=== PATIENT | female | born 1980 | race Asian ===

== ENCOUNTER 2021-09-01 14:16 | Emergency (ER) | payer OTHER ==
[~2021-09-01] VITALS: Ht 162.6 cm; Wt 58.1 kg
[2021-09-01 14:22] VITALS: BP_SYST 124
--- NOTE | 2021-09-01 14:26 | NUR ---
Patient to ER bed 05 to gown for evaluation. Side rails up.
--- NOTE | 2021-09-01 16:45 | NUR ---
pt. bib with c/o worsening upper back and shoulder pain, states has had pain for a year but it has worsened this past month, describes it as tightening and thinks might be caused from stress, rates pain 11/15
--- NOTE | 2021-09-01 16:50 | NUR ---
ANN Smith at bedside examining patient.
--- NOTE | 2021-09-01 16:56 | NUR ---
Patient ambulated to radiology via , accompanied by staff.
--- NOTE | 2021-09-01 17:54 | NUR ---
pts. pain 6/10 denies need for pain medication
[2021-09-01 17:55] VITALS: BP_SYST 94
--- NOTE | 2021-09-01 17:56 | NUR ---
Patient given written and verbal discharge instructions and verbalizes understanding. ER Dr. Howell discussed with patient the results and treatment provided. Patient in stable condition. ID arm band removed. Patient educated on pain management and to follow up with PMD. Pain Scale 6, denies need for pain med here will take motrin at home. Opportunity for questions provided and answered.
== END 2021-09-01 17:56 | disposition home or self-care (01) ==
LOC: SED 14:16
DX: M94.0 Chondrocostal junction syndrome [Tietze] (principal); M54.6 Pain in thoracic spine
CPT/HCPCS: 71045; 93005; 99284